=== PATIENT | female | born 1995 | race Caucasian/White ===

== ENCOUNTER 2016-12-26 22:34 | Emergency (ER) | payer OTHER ==
[2016-12-26] MEDS ORDERED: ONDANSETRON 4 MG/2ML 2 ML VIAL ONE (23:19)
[2016-12-26] MEDS ORDERED: LACTATED RINGERS 1,000 ML ONE (23:19)
[2016-12-26 23:27] LABS: HCG,QUALITATIVE URINE NEGATIVE
[2016-12-27 00:36] LABS: URINE APPEARANCE CLEAR; URINE BILIRUBIN NEGATIVE (NEGATIVE); URINE BLOOD NEGATIVE (NEGATIVE); URINE COLOR YELLOW; URINE GLUCOSE (UA) NEGATIVE (NEGATIVE); URINE LEUKOCYTE ESTERASE NEGATIVE (NEGATIVE); URINE NITRITE NEGATIVE (NEGATIVE); URINE PROTEIN NEGATIVE (NEGATIVE); URINE UROBILINOGEN NORMAL (0-1 mg/dl)
[2016-12-27 00:38] LABS: HCG,QUALITATIVE URINE NEGATIVE
[2016-12-27 00:40] LABS: BASO % 0.2 % (0.2-1.0); EOS % 0.3 % (0.9-2.9); HEMATOCRIT 39.8 % (37.0-47.0); IMM NEUT% 0.3 % (0-1); LYMPH # 1.6 (1.0-4.8); LYMPH % 13.2 % (15-45); MEAN CELL VOLUME 86.9 fl (81.0-99.0); MEAN CORPUSCULAR HEMOGLOBIN 28.4 pg (27.0-31.0); MEAN CORPUSCULAR HGB CONC 32.7 g/dl (33.0-37.0); MEAN PLATELET VOLUME 9.4 fl (7.4-10.4); MONO # 0.7 (0.0-0.8); MONO % 5.8 % (4-12); NEUT % 80.2 % (43-75); PLATELET COUNT 329 K/mm3 (130-400); RED CELL DISTRIBUTION WIDTH 13.1 % (11.5-14.5)
[2016-12-27 00:55] LABS: ALB/GLOB RATIO 1.5 (>1.0); ALBUMIN 4.1 gm/dL (3.5-5.7); CALCIUM 9.5 mg/dL (8.6-10.3); MAGNESIUM 1.9 mg/dL (1.9-2.7)
== END 2016-12-27 01:48 | disposition home or self-care (01) ==
LOC: ED 22:34
DX: R11.2 Nausea with vomiting, unspecified (principal); R10.9 Unspecified abdominal pain; F12.10 Cannabis abuse, uncomplicated
CPT/HCPCS: 83690; 81025 ×2; 85025; 80053; 83735; 81003; 99283 ×2; 96374; 96361 ×2; J2405; J7120